=== PATIENT | female | born 1965 | race Caucasian/White ===

== ENCOUNTER 2016-07-10 17:58 | Emergency (ER) | payer MEDICARE, MEDICAID ==
[~2016-07-10 17:58] MED LIST: Sterile Water Irrigation 1,000 ML BOT ONE
[2016-07-10] MEDS ORDERED: HYDROcodone/Acetaminophen 10/325 mg Tablet ONE (19:00)
[2016-07-10] MEDS ORDERED: Naproxen 500 MG TAB ONE (19:00)
[2016-07-10] MEDS ORDERED: Morphine Sulfate 2 MG/ML SYRINGE ONE (19:00)
[2016-07-10] MEDS ORDERED: Ondansetron ODT 4 MG TAB ONE (19:00)
[2016-07-10] MEDS ORDERED: Triple Antibiotic Oint 1 GM Packet ONE (19:20)
[2016-07-10] MEDS ORDERED: Cephalexin 500 MG CAP ONE (19:54)
--- NOTE | 2016-07-10 20:42 | ERRECORD ---
[facility] EMERGENCY RECORD HPI BURN (19:24 LLDO) CHIEF COMPLAINT: Patient presents for evaluation of thermal burn, from hot water, Patient presents for evaluation of see triage note. pt presents with credit card-sized area of burn on the juncture of the dorsum of the left foot and the anterior ankle. about 50% covered with blisters that are not broken. HISTORIAN: History provided by patient. PRIOR TO ARRIVAL: Prior to arrival cold water applied to site. LOCATION: SEE ABOVE. BURN LOCATION: No cirumferential calixto noted, Left lower extremity calixto, No cirumferential calitxo noted, Anterior lower leg, Foot. QUALITY: Pain is dull in nature, described as aching, described as BURNING. SEVERITY: Maximum severity of symptoms severe, Currently symptoms are severe. TIME COURSE: Date and time of onset was see triage note. ASSOCIATED WITH: Associated symptoms reveiwed, Associated with decreased range of motion, No associated shortness of breath, No associated singed hair, No associated trauma, Associated with vesicles, Denies any other complaints. EXACERBATED BY: Patient's condition exacerbated by movement, Patient's condition exacerbated by touch. RELIEVED BY: Patient's condition relieved by ice. TETANUS: Tetanus status up to date. ROS CONSTITUTIONAL: Negative constitutional review of systems. (19:29 LLDO) EYES: Negative eye review of systems, Historian denies eye pain, denies eye redness, denies eye discharge. (19:31 LLDO) ENT: Negative ears, nose, throat review of systems, Historian denies epistaxis, denies rhinorrhea, denies sinus pain, denies sore throat. (19:31 LLDO) MUSCULOSKELETAL: Negative musculoskeletal review of systems, Historian denies arthralgias, denies back pain, denies injury, denies myalgias, denies neck pain. (19:31 LLDO) SKIN: Historian reports skin changes, reports skin lesions. IN HPI. (19:29 LLDO) NEUROLOGIC: Negative neurologic review of systems, Historian denies confusion, denies dizziness, denies focal weakness, denies mental status changes. (19:31 LLDO) HEMO/LYMPHATIC: Normal hematologic/lymphatic system review, Historian denies abnormal blood clotting, denies gum bleeding, denies petechiae. (19:31 LLDO) ALLERGIC/IMMUNOLOGIC: Normal allergy/immunologic system review, Historian denies eczema, denies environmental allergies, denies food allergies. (19:31 LLDO) &a-1R&a+25V*p+0X*o4000A*c202B*c15G*c2P*p-0X&a-25V&a+1R Name: Shannon Read : 1965 F51 MedRec: [id number] AcctNum: [id number] Prepared: MonJul 11, 2016 05:43 by Interface Page 1 of 4 pMD [facility] EMERGENCY RECORD PSYCHIATRIC: Negative psychiatric review of systems, Historian denies alcohol abuse, denies anxiety, denies depression, denies drug abuse, denies hallucinations. (19:31 LLDO) NOTES: All systems reviewed, negative except as described above. (19:29 LLDO) PAST MEDICAL HISTORY MEDICAL HISTORY: Notes: ARTHRITIS GOUT PULMONARY FIBROSIS. (Haigler Jul 10, 2016 18:19 JPER) FEMALE SURGICAL HISTORY: Surgical history of hysterectomy. (Haigler Jul 10, 2016 18:19 JPER) PSYCHIATRIC HISTORY: Notes: BIPOLAR DISORDER. (Haigler Jul 10, 2016 18:19 JPER) SOCIAL HISTORY: Patient denies alcohol use, Patient denies drug use, Patient has no smoking history. (Haigler Jul 10, 2016 18:19 JPER) NOTES: Nursing records reviewed, Agree with nursing records, Medication list reviewed. (19:31 LLDO) KNOWN ALLERGIES Biaxin CURRENT MEDICATIONS (18:21 JPER) Lipitor: TABLET : Strength - 40 mg : ORAL Patient Dose: once a day (at bedtime). PROzac: CAPSULE : Strength - 20 mg : ORAL Patient Dose: 10 once a day (in the morning). traZODone: TABLET : Strength - 100 mg : ORAL Patient Dose: 200 mg once a day (at bedtime). Sonata: CAPSULE : Strength - 10 mg : ORAL Patient Dose: once a day (at bedtime). VITAL SIGNS VITAL SIGNS: BP: 114/73, Pulse: 66, Resp: 16, Temp: 98 (Oral), Pain: 8, O2 sat: 98 on Room Air, Time: 07/10/2016 18:15. (18:15 JPER) BP: 118/67, Pulse: 63, Resp: 18, Pain: 8, O2 sat: 96 on Room Air, Time: 07/10/2016 19:28. (19:28 [facility]) PHYSICAL EXAM CONSTITUTIONAL: Vital Signs Reviewed, Patient afebrile, Pulse normal, Blood pressure normal, Respiratory rate normal, Patient appears, uncomfortable, Patient appears, in severe pain distress, Patient alert and oriented to person, place and time, Nursing notes reviewed. (19:30 LLDO) HEAD: Head exam normal, Head exam included findings of head atraumatic, normocephalic. (19:31 LLDO) &a-1R&a+25V*p+0X*[id number]*c202B*c15G*c2P*p-0X&a-25V&a+1R Name: Shannon Read : 1965 F51 MedRec: [id number] AcctNum: [id number] Prepared: MonJul 11, 2016 05:43 by Interface Page 2 of 4 pMD [facility] EMERGENCY RECORD EYES: Eye exam normal, Eye exam included findings of eyelids normal to inspection, Pupils equally round and reactive to light, Extraocular muscles intact. (19:31 LLDO) ENT: ENT exam normal, Ear exam normal, Nose exam normal. (19:31 LLDO) NECK: Neck exam normal, Neck exam included findings of normal range of motion, Trachea midline, no meningeal signs, no tenderness. (19:31 LLDO) BACK: Back exam normal, Back exam included findings of normal inspection, range of motion normal. (19:31 LLDO) UPPER EXTREMITY: Upper extremity exam normal, Upper extremity exam included findings of inspection normal, Range of motion normal. (19:31 LLDO) LOWER EXTREMITY: Lower extremity exam normal, Lower extremity exam included findings of inspection normal, Range of motion normal. (19:31 LLDO) NEURO: Neuro exam normal, Neuro exam findings include patient oriented to person, place and time, Speech normal, Pana coma scale 15. (19:31 LLDO) SKIN: Skin exam included findings of skin warm, dry, and normal in color, CALIXTO NOTED ABOVE. (19:30 LLDO) PSYCHIATRIC: Psychiatric exam normal, Psychiatric exam included findings of patient oriented to person place and time, Normal affect. (19:31 LLDO) MEDICATION ADMINISTRATION SUMMARY Drug Name: Cefanex, Dose Ordered: 500 mg, Route: Oral, Status: Given, Time: 20:01 07/10/2016, Drug Name: *Tylenol-Codeine #3, Dose Ordered: 1-2 tab(s), Route: Oral, Status: Given, Time: 20:01 07/10/2016, Drug Name: Triple Antibiotic topical ointment, Dose Ordered: 1 heidy, Route: Topical, Status: Given, Time: 19:26 07/10/2016, Drug Name: Duramorph (PF), Dose Ordered: 6 mg, Route: Intramuscular, Status: Given, Time: 19:08 07/10/2016, Drug Name: [place], Dose Ordered: 10-325 mg, Route: Oral, Status: Given, Time: 19:07 07/10/2016, Drug Name: Naprosyn, Dose Ordered: 500 mg, Route: Oral, Status: Given, Time: 19:07 07/10/2016, Drug Name: Zofran ODT, Dose Ordered: 8 mg, Route: Sublingual, Status: Given, Time: 19:06 07/10/2016, *Additional information available in notes, Detailed record available in Medication Service section. PROBLEM LIST No recorded problems DIAGNOSIS (19:33 LLDO) FINAL: PRIMARY: burn left foot, second degree. PRESCRIPTION (19:35 LLDO) &a-1R&a+25V*p+0X*c0671K*c202B*c15G*c2P*p-0X&a-25V&a+1R Name: Shannon Read : 1965 F51 MedRec: [id number] AcctNum: [id number] Prepared: MonJul 11, 2016 05:43 by Interface Page 3 of 4 pMD [facility] EMERGENCY RECORD Keflex: CAPSULE (HARD, SOFT, ETC.) : 500 mg : ORAL : Quantity: 1 Unit: cap(s) Route: ORAL Schedule: 3 times a day Dispense: 30 May substitute. Refills: No Refills . NOTES: No Refills. [place]: TABLET : 10 mg-325 mg : ORAL : Quantity: 1 Unit: tab(s) Route: ORAL Schedule: every 4 hours prn Dispense: 30 Unit: tab(s) May substitute. Refills: No Refills . NOTES: ^s=No Refills No Refills. DISPOSITION PATIENT: Disposition Type: Discharge, Disposition: *Discharge Home. (19:33 ZHAO) Patient left the department. (20:05 [place]) [place]: DARREN=KAIT Quiroga, Ella PARIS=KAIT Lagunas, Rula THOMAS=KAIT Keating, Tracey CHURCHILL=MD Dalton, Rogerio &a-1R&a+25V*p+0X*[id number]*c202B*c15G*c2P*p-0X&a-25V&a+1R Name: Shannon Read : 1965 F51 MedRec: [id number] AcctNum: [id number] Prepared: MonJul 11, 2016 05:43 by Interface Page 4 of 4 pMD MTDD
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
== END 2016-07-10 20:02 | disposition home or self-care (01) ==
LOC: MADERS 17:58
DX: T25.222A Burn of second degree of left foot, initial encounter (principal); F31.9 Bipolar disorder, unspecified; Z79.899 Other long term (current) drug therapy; X11.8XXA Contact with other hot tap-water, initial encounter
CPT/HCPCS: 96372; A4217; J2270; Q0162

== ENCOUNTER 2017-02-26 15:16 | Emergency (ER) | payer MEDICARE, MEDICAID ==
[2017-02-26] MEDS ORDERED: Naproxen 500 MG TAB ONE (16:37)
[2017-02-26] MEDS ORDERED: Diazepam 5 MG TAB ONE (16:37)
[2017-02-26] MEDS ORDERED: Morphine Sulfate 2 MG/ML SYRINGE ONE (16:37)
== END 2017-02-26 17:00 | disposition home or self-care (01) ==
LOC: MADERS 15:16
DX: M54.12 Radiculopathy, cervical region (principal); M79.7 Fibromyalgia; M54.6 Pain in thoracic spine; M10.9 Gout, unspecified; J84.10 Pulmonary fibrosis, unspecified; F31.9 Bipolar disorder, unspecified; Z79.891 Long term (current) use of opiate analgesic; Z79.899 Other long term (current) drug therapy
CPT/HCPCS: 96372; J2270

== ENCOUNTER 2019-03-29 12:04 | Emergency (ER) | payer MEDICARE, MEDICAID ==
--- NOTE | 2019-03-29 12:33 | RAD ---
XR Chest Pa Lat STANDARD History: Dyspnea Comparison: Radiograph June 26, 2018 Findings: Scarring lung apices. Abnormal increased interstitial markings throughout the lungs with th e imaging appearance of pulmonary fibrosis. No pneumothorax. No effusion. No acute osseous abnormality. Impression: Pulmonary fibrosis otherwise no acute intrathoracic abnormality.
[2019-03-29 13:03] LABS: #Basophils 0.1 thou/uL (0.0-0.2); #Eosinphils 0.1 thou/uL (0.0-0.7); #Lymphocytes 1.9 thou/uL (1.20-3.40); #Monocytes 0.7 thou/uL (0.11-0.59); %Basophils 0.8 % (0.0-1.0); %Eosinophils 2.1 % (0.0-10.0); %Lymphocytes 27.7 % (21.0-51.0); %Monocytes 9.8 % (0.0-10.0); %Neutrophils 59.6 % (42.0-75.0); Hemoglobin 12.1 g/dL (12.0-16.0); Mean Corpuscular HGB CONC 33.7 g/dL (32.0-36.0); Mean Corpuscular Hemoglobin 30.6 pg (27.0-31.0); Mean Corpuscular Volume 90.7 fL (78.0-98.0); Mean Platelet Volume 5.1 fL (7.4-10.4); Platelet Count 256 thou/uL (130-400); RBC Distribution Width 11.5 % (11.5-14.5); Red Blood Cell (RBC) Count 3.95 mill/uL (4.20-5.40); White Blood Cell (WBC) Count 6.7 thou/uL (4.8-10.8)
[2019-03-29 13:07] LABS: ALT (SGPT) 14 U/L (8-55); AST (SGOT) 14 U/L (5-34); Albumin 3.8 g/dL (3.5-5.0); Alkaline Phosphatase 66 U/L (40-110); Anion Gap 15 mmol/L (10-20); BUN (Urea Nitrogen) 6 mg/dL (9.8-20.1); Bilirubin, Total 0.2 mg/dL (0.2-1.2); Calc. Creatinine Clearance 0 mL/min (70-130); Calcium 9.1 mg/dL (7.8-10.44); Carbon Dioxide 23 mmol/L (22-29); Chloride 106 mmol/L (98-107); Estimated GFR-MDRD 77; Globulin 3.2 g/dL (2.4-3.5); Glucose 85 mg/dL (70-105); Sodium 140 mmol/L (136-145)
== END 2019-03-29 13:43 | disposition home or self-care (01) ==
LOC: MADERS 12:04
DX: J20.9 Acute bronchitis, unspecified (principal); M10.9 Gout, unspecified; M19.90 Unspecified osteoarthritis, unspecified site; F31.9 Bipolar disorder, unspecified; F17.290 Nicotine dependence, other tobacco product, uncomplicated; Z71.6 Tobacco abuse counseling; Z79.899 Other long term (current) drug therapy
CPT/HCPCS: 71046; 80053; 83605; 83880; 84484; 85025; 87040; 87149; 87804; 93005; 94760; 99406

== ENCOUNTER 2020-10-15 11:40 | Outpatient (CLI) | payer MEDICARE, MEDICAID | END 2020-10-15 11:41 | disposition home or self-care (01) | LOC: MADLAB 11:40 | PROVIDERS: ATTEND Physician Assistant | DX: J84.10 Pulmonary fibrosis, unspecified (principal); J98.4 Other disorders of lung | CPT/HCPCS: 71046 ==

== ENCOUNTER 2022-02-26 11:07 | Emergency (ER) | payer OTHER ==
[2022-02-26] MEDS ORDERED: methylPREDNISolone Sod Succ/PF 125 MG/2 ML VIAL ONE (11:36)
[2022-02-26 11:38] LABS: #Basophils 0.1 thou/uL (0.0-0.2); #Eosinphils 0.5 thou/uL (0.0-0.7); #Lymphocytes 1.9 thou/uL (1.20-3.40); #Monocytes 0.8 thou/uL (0.11-0.59); #Neutrophils 5.3 thou/uL (1.40-6.50); %Basophils 1.3 % (0.0-1.0); %Eosinophils 5.5 % (0.0-10.0); %Monocytes 9.6 % (0.0-10.0); %Neutrophils 61.5 % (42.0-75.0); Hemoglobin 13.5 g/dL (12.0-16.0); Mean Corpuscular HGB CONC 33.1 g/dL (32.0-36.0); Mean Corpuscular Volume 93.8 fL (78.0-98.0); Mean Platelet Volume 6.6 fL (7.4-10.4); Platelet Count 329 thou/uL (130-400); RBC Distribution Width 11.7 % (11.5-14.5); Red Blood Cell (RBC) Count 4.35 mill/uL (4.20-5.40); White Blood Cell (WBC) Count 8.5 thou/uL (4.8-10.8)
[2022-02-26 11:41] LABS: Base Excess-Venous 4.1 mmol/L (-2.0 to 3.0); Bicarbonate (HCO3v) 32.7 mmol/L (22.0-28.0); CO2 Tension (PvCO2) 64.4 mmHg (42.0-51.0); Calcium, Ionized 1.17 mmol/L (1.15-1.33); Chloride 100 mmol/L (98-107); Hemoglobin - Calc 15.7 g/dL (12.0-16.0); Sodium 138 mmol/L (138-145); T. Carbon Dioxide 34.7 mmol/L (22.0-28.0); vO2 Saturation-calc 67.8 % (60.0-85.0)
[2022-02-26] MEDS ORDERED: Sodium Chloride 0.9% 500 ML ONE ×2 (11:49→12:14)
[2022-02-26 11:50] LABS: ALT (SGPT) 17 U/L (8-55); AST (SGOT) 16 U/L (5-34); Albumin 4.3 g/dL (3.5-5.0); Alkaline Phosphatase 90 U/L (40-110); Anion Gap 15 mmol/L (10-20); BUN (Urea Nitrogen) 10 mg/dL (9.8-20.1); Bilirubin, Total 0.3 mg/dL (0.2-1.2); Calc. Creatinine Clearance 0 mL/min (70-130); Calcium 9.8 mg/dL (7.8-10.44); Carbon Dioxide 30 mmol/L (22-29); Chloride 98 mmol/L (98-107); Estimated GFR 85; Globulin 3.3 g/dL (2.4-3.5); Glucose 102 mg/dL (70-105); Magnesium 2.2 mg/dL (1.6-2.6); Potassium 4.4 mmol/L (3.5-5.1); Protein, Total 7.6 g/dL (6.0-8.3); Sodium 139 mmol/L (136-145)
[2022-02-26 13:36] LABS: SARS-CoV-2 NAA Rapid Test Not Detected (NotDetected)
[2022-02-26] MEDS ORDERED: methylPREDNISolone Sod Succ/PF 125 MG/2 ML VIAL IVP SCH (18:00)
== END 2022-02-26 14:43 | disposition short-term general hospital (02) ==
LOC: MADERS 11:07
DX: J44.1 Chronic obstructive pulmonary disease with (acute) exacerbation (principal); E87.2 Acidosis; R06.03 Acute respiratory distress; E78.5 Hyperlipidemia, unspecified; M10.9 Gout, unspecified; M19.90 Unspecified osteoarthritis, unspecified site; F17.210 Nicotine dependence, cigarettes, uncomplicated; Z20.822 Contact with and (suspected) exposure to COVID-19; Z79.899 Other long term (current) drug therapy
CPT/HCPCS: 36415; 71045; 80053; 82330; 82803; 83605; 83735; 83880; 84484; 85014; 85025; 87040; 93005; 96374; J2930; J7030; J7620; U0002

== ENCOUNTER 2022-06-06 12:46 | Emergency (ER) | payer MEDICARE ==
[2022-06-06 13:46] LABS: #Basophils 0.1 thou/uL (0.0-0.2); #Eosinphils 0.2 thou/uL (0.0-0.7); #Lymphocytes 0.8 thou/uL (1.20-3.40); #Monocytes 0.4 thou/uL (0.11-0.59); #Neutrophils 9.6 thou/uL (1.40-6.50); %Basophils 1.2 % (0.0-1.0); %Eosinophils 1.5 % (0.0-10.0); %Lymphocytes 6.9 % (21.0-51.0); %Neutrophils 86.4 % (42.0-75.0); Hemoglobin 11.8 g/dL (12.0-16.0); Mean Corpuscular HGB CONC 32.9 g/dL (32.0-36.0); Mean Corpuscular Hemoglobin 30.4 pg (27.0-31.0); Mean Corpuscular Volume 92.6 fl (78.0-98.0); Mean Platelet Volume 5.6 fL (7.4-10.4); Platelet Count 320 10x3/uL (130-400); Red Blood Cell (RBC) Count 3.88 mill/uL (4.20-5.40); White Blood Cell (WBC) Count 11.1 10x3/uL (4.8-10.8)
[2022-06-06] MEDS ORDERED: HYDROcodone/Acetaminophen 5/325 mg Tablet ONE (13:54)
[2022-06-06 13:55] LABS: INR-International Normal Ratio 0.9; Prothrombin Time 12.4 sec (12.0-14.7)
[2022-06-06] MEDS ORDERED: Amoxicillin/Potassium Clav 875 MG TAB ONE (13:55)
[2022-06-06] MEDS ORDERED: Albuterol Sulfate 2.5 mg/3 ml Neb ONE (13:55)
[2022-06-06] MEDS ORDERED: Lidocaine 1% w/Epinephrine 1:100K 20 ML VIAL ONE (13:55)
[2022-06-06] MEDS ORDERED: predniSONE 10 MG TAB ONE (13:55)
[2022-06-06] MEDS ORDERED: predniSONE 20 MG TAB ONE (13:55)
[2022-06-06 14:06] LABS: ALT (SGPT) 32 U/L (8-55); AST (SGOT) 20 U/L (5-34); Albumin 3.8 g/dL (3.5-5.0); Alkaline Phosphatase 85 U/L (40-110); Anion Gap 15 mmol/L (10-20); BUN (Urea Nitrogen) 13 mg/dL (9.8-20.1); Bilirubin, Total Less than 0.2 mg/dL (0.2-1.2); Calc. Creatinine Clearance 0 mL/min (70-130); Calcium 9.4 mg/dL (7.8-10.44); Carbon Dioxide 27 mmol/L (22-29); Chloride 103 mmol/L (98-107); Estimated GFR 82; Globulin 3.2 g/dL (2.4-3.5); Glucose 208 mg/dL (70-105); Potassium 4.1 mmol/L (3.5-5.1); Sodium 141 mmol/L (136-145)
== END 2022-06-06 15:54 | disposition home or self-care (01) ==
LOC: MADERS 12:46
DX: M27.3 Alveolitis of jaws (principal); J44.9 Chronic obstructive pulmonary disease, unspecified; E78.5 Hyperlipidemia, unspecified; Z20.822 Contact with and (suspected) exposure to COVID-19; Z87.891 Personal history of nicotine dependence
CPT/HCPCS: 36415; 64400; 71046; 80053; 83605; 84484; 85025; 85610; 85730; 87040; 87804; 93005; 94760; J7512; J7611; J7620; U0003; U0005

== ENCOUNTER 2022-06-19 09:47 | Emergency (ER) | payer MEDICARE ==
[2022-06-19] MEDS ORDERED: Ondansetron PF 4 MG/2 ML Vial ONE (10:20)
[2022-06-19] MEDS ORDERED: Morphine 4 MG/ML VIAL ONE (10:20)
[2022-06-19 13:22] LABS: #Basophils 0.1 thou/uL (0.0-0.2); #Lymphocytes 0.2 thou/uL (1.20-3.40); #Monocytes 0.5 thou/uL (0.11-0.59); #Neutrophils 18.4 thou/uL (1.40-6.50); %Basophils 0.4 % (0.0-1.0); %Lymphocytes 1.3 % (21.0-51.0); %Monocytes 2.5 % (0.0-10.0); %Neutrophils 95.8 % (42.0-75.0); Hemoglobin 11.9 g/dL (12.0-16.0); Mean Corpuscular HGB CONC 33.2 g/dL (32.0-36.0); Mean Corpuscular Hemoglobin 30.2 pg (27.0-31.0); Mean Corpuscular Volume 91.2 fl (78.0-98.0); Mean Platelet Volume 6.1 fL (7.4-10.4); Platelet Count 367 10x3/uL (130-400); RBC Distribution Width 12.9 % (11.5-14.5); Red Blood Cell (RBC) Count 3.94 mill/uL (4.20-5.40); White Blood Cell (WBC) Count 19.2 10x3/uL (4.8-10.8)
[2022-06-19 13:24] LABS: Base Excess (BEa) POC ABG -1.5 mmol/L (-2.0 to +3.0); Calcium, Ionized 1.16 mmol/L (1.15-1.33); Chloride POC ABG 110 mmol/L (98-107); Hematocrit POC ABG 39 % (38-51); Hemoglobin POC ABG 13.3 g/dL (12.0-17.0); O2 Saturation (calc) POC ABG 99.6 % (94.0-98.0); Potassium POC ABG 4.4 mmol/L (3.5-4.5); Sodium POC ABG 142 mmol/L (138-146); pH (Arterial) 7.348 (7.35-7.45)
[2022-06-19 13:34] LABS: ALT (SGPT) 17 U/L (8-55); AST (SGOT) 31 U/L (5-34); Albumin 3.7 g/dL (3.5-5.0); Alkaline Phosphatase 114 U/L (40-110); Anion Gap 16 mmol/L (10-20); BUN (Urea Nitrogen) 17 mg/dL (9.8-20.1); Bilirubin, Total 0.5 mg/dL (0.2-1.2); Calc. Creatinine Clearance 0 mL/min (70-130); Calcium 9.5 mg/dL (7.8-10.44); Carbon Dioxide 21 mmol/L (22-29); Chloride 106 mmol/L (98-107); Estimated GFR 89; Globulin 3.6 g/dL (2.4-3.5); Glucose 164 mg/dL (70-105); Potassium 4.4 mmol/L (3.5-5.1); Protein, Total 7.3 g/dL (6.0-8.3); Sodium 139 mmol/L (136-145)
[2022-06-19] MEDS ORDERED: Piperacillin/Tazobactam 4.5 GM VIAL ONE (13:43)
[2022-06-19] MEDS ORDERED: Sodium Chloride 0.9% 1,000 ML ONE (13:43)
[2022-06-19] MEDS ORDERED: Sodium Chloride 0.9% 100 ML ONE (13:43)
[2022-06-19] MEDS ORDERED: Vancomycin 1 GM VIAL ONE (14:02)
[2022-06-19] MEDS ORDERED: Sodium Chloride 0.9% 250 ML 250 ML ONE (14:03)
[2022-06-19 14:15] LABS: CKMB 2.7 ng/mL (0-6.6)
== END 2022-06-19 15:55 | disposition short-term general hospital (02) ==
LOC: MADERS 09:47
DX: J44.1 Chronic obstructive pulmonary disease with (acute) exacerbation (principal); J84.10 Pulmonary fibrosis, unspecified; J96.20 Acute and chronic respiratory failure, unspecified whether with hypoxia or hypercapnia; E78.5 Hyperlipidemia, unspecified; Z87.891 Personal history of nicotine dependence; Z79.899 Other long term (current) drug therapy
CPT/HCPCS: 71045; 80053; 82330; 82553; 82803; 83605; 84484; 85014; 85025; 86140; 87040; 93005; 96365; 96367; 96375; J2270; J2405; J2543; J3370; J3490; J7050; J7620